=== PATIENT | male | born 1955 | race Caucasian/White ===

== ENCOUNTER 2017-05-22 12:47 | Emergency (ER) | payer SELFPAY, OTHER ==
[2017-05-22] MEDS: ONDANSETRON (ODT) 4 MG TAB ODT (14:31)
[2017-05-22] MEDS: HYDROCODONE/APAP (5/325) TAB PO (14:31)
== END 2017-05-22 14:45 | disposition home or self-care (01) ==
LOC: E/R 12:47 → FTE 14:45
DX: S82.032A Displaced transverse fracture of left patella, initial encounter for closed fracture (principal); W01.0XXA Fall on same level from slipping, tripping and stumbling without subsequent striking against object, initial encounter; Y92.9 Unspecified place or not applicable
CPT/HCPCS: 29505; 73562; 99283-25

== ENCOUNTER 2018-07-10 11:14 | Emergency (ER) | payer MEDICAID ==
[2018-07-10] MEDS: KETOROLAC 15 MG INJ IM (12:43)
[2018-07-10] MEDS: predniSONE 20 MG TAB PO (12:44)
== END 2018-07-10 13:11 | disposition home or self-care (01) ==
LOC: FTE 11:14
DX: M10.00 Idiopathic gout, unspecified site (principal); I10 Essential (primary) hypertension; E11.9 Type 2 diabetes mellitus without complications; Z79.84 Long term (current) use of oral hypoglycemic drugs
CPT/HCPCS: 96372; 99284-25